=== PATIENT | female | born 1950 | race Caucasian/White ===

== ENCOUNTER 2022-11-17 13:51 | Outpatient (CLI) | payer MEDICARE, BC, SELFPAY | END 2022-11-17 13:52 | disposition home or self-care (01) | PROVIDERS: PCP Physician Assistant Medical; Visit Provider Physician Assistant Medical | DX: Z01.818 Encounter for other preprocedural examination (principal); R73.03 Prediabetes | CPT/HCPCS: 87086 ==

== ENCOUNTER 2023-04-28 12:48 | Outpatient (RCR) | payer MEDICARE, BC, SELFPAY | END 2023-10-25 23:59 | disposition home or self-care (01) | LOC: CCIC 12:48 | PROVIDERS: PCP Physician Assistant Medical; Visit Provider Physician Assistant | DX: C50.912 Malignant neoplasm of unspecified site of left female breast (principal); Z17.0 Estrogen receptor positive status [ER+]; Z79.810 Long term (current) use of selective estrogen receptor modulators (SERMs); Z90.13 Acquired absence of bilateral breasts and nipples; G62.9 Polyneuropathy, unspecified; E66.9 Obesity, unspecified; Z68.42 Body mass index [BMI] 45.0-49.9, adult | CPT/HCPCS: 99212; 99214; 99215 ==

== ENCOUNTER 2023-06-30 07:13 | Day surgery (SDC) | payer MEDICARE, BC, SELFPAY ==
[2023-06-30] VITALS (24 sets, daily range): BP systolic 101–155; BP diastolic 61–101; PULSE 56–95; RESP 14–75; TEMP 36.1–36.9; O2SAT 94–99; BMI 47.2
[2023-06-30] MEDS: LACTATED RINGERS 1000 ML 1,000 ML 100 ML IV ×2 (08:00→11:45)
[2023-06-30] MEDS: SODIUM CHLORIDE 0.9 % (FLUSH) 10 ML SYRINGE IVF (08:00)
[2023-06-30] MEDS: OXYCODONE (CR) 10 MG TAB.ER.12H PO (08:11)
[2023-06-30] MEDS: CELECOXIB 200 MG CAPSULE PO (08:11)
[2023-06-30] MEDS: ACETAMINOPHEN 500 MG TABLET 1000 MG PO ×3 (08:11→21:32)
[2023-06-30] MEDS: fentaNYL 100 MCG/2 ML inj IVP (09:30)
[2023-06-30] MEDS: MIDAZOLAM HCL 1 MG/ML inj IVP (09:30)
--- NOTE | 2023-06-30 09:36 | SUR.PREOP ---
TIME?OUT:?0930 PT/RN/MDA?VERIFICATION?OF?SURGICAL?SITE,?PROCEDURE,?AND?CONSENT OBTAINED?PRIOR?TO?INVASIVE?PROCEDURE.
--- NOTE | 2023-06-30 09:37 | P.NB_ITS ---
Nerve Block Nerve Block Time Seen by Provider: 09:35 Date Seen: 06/30/23 Type of block requested by surgeon for post-operative analgesia: adductor canal Side: left Time out performed: Yes Verification of patient name: Yes Verification of date of : Yes Site marking: site marked Name of person performing procedure: Gilberto Continuous monitoring Was continuous monitoring of O2 sat, B/P, nuclear monitoring technician, recorded every 15 minutes?: Yes Procedure Checklist: sterile prep, needles and gloves Ultrasound guided. Images saved: Yes Medications given in 5ml increments after negative aspiration: Ropivicaine %: 0.5 mL: 20 Needle gauge: 20 Decadron (mg): 10 Precedex (mcg): 25 Patient tolerated procedure well: Yes Additional comments: Needle noted adjacent to nerve Block Charges Block Charge (with Pro Fee): Femoral Nerve Use of Ultrasound Machine for Block: Yes- US Guidance/pain block
--- NOTE | 2023-06-30 09:37 | P.NB_ITS ---
Nerve Block Nerve Block Time Seen by Provider: 09:35 Date Seen: 06/30/23 Type of block requested by surgeon for post-operative analgesia: geniculars Side: left Time out performed: Yes Verification of patient name: Yes Verification of date of : Yes Site marking: site marked Name of person performing procedure: Gilberto Continuous monitoring Was continuous monitoring of O2 sat, B/P, awake overnight monitor, recorded every 15 minutes?: Yes Procedure Checklist: sterile prep, needles and gloves Medications given in 5ml increments after negative aspiration: Ropivicaine %: 0.5 mL: 9 Needle gauge: 25 Patient tolerated procedure well: Yes Block Charges Block Charge (with Pro Fee): Genicular Nerve Block Use of Ultrasound Machine for Block: No
--- NOTE | 2023-06-30 09:38 | W.ANESCHARGE ---
Anesthesia Charges Start Date/Time Anesthesia Start Date: 06/30/23 Anesthesia Start Time: 10:14 Stop Date/Time Anesthesia Stop Date: 06/30/23 Anesthesia Stop Time: 12:53 Summary Extremes of Age - Over 70 or under 1: MDA
[2023-06-30] MEDS: CEFAZOLIN 2 GM INJ IVP (10:20)
[2023-06-30] MEDS: TRANEXAMIC ACID 100 MG/ML INJ 1000 MG IV (10:25)
--- NOTE | 2023-06-30 12:13 | CRLHL7_ITS ---
For Patients: As a result of the Cures Act, medical imaging exams and procedure reports are released immediately into your electronic medical record. You may view this report before your referring provider. If you have questions, please contact your health care provider. Indication: Left total knee arthroplasty postop. Technique: Left knee two views. Comparison: 12/28/2022. Findings: Left knee arthroplasty appears appropriately positioned. Soft tissue gas consistent with recent surgery. No acute osseous abnormality or other significant interval change. Impression: Expected changes status post left knee arthroplasty. Dictated by Miguelito Miller MD @ 06/30/2023 8:30:07 PM (Electronically Signed)
--- NOTE | 2023-06-30 12:21 | PM.ORPRC ---
Procedure Note Date of procedure: 06/30/23 Procedure: PREOPERATIVE DIAGNOSIS: Left knee osteoarthritis POSTOPERATIVE DIAGNOSIS: Left knee osteoarthritis NAME OF OPERATION: Left total knee arthroplasty SURGEON: Saud Vieira MD MAGNETO ELECTRICIAN: ANGÉLICA Sue ANESTHESIA: Spinal ESTIMATED BLOOD LOSS: 0 mL COMPLICATIONS: None SPECIMENS: None DRAINS: None PREOPERATIVE ANTIBIOTICS: Ancef 2 grams IMPLANTS: 1. J&J Attune revision CRS #6 posterior stabilized femur with a 14 mm x 50 mm cemented stem 2. # 5 revision CRS fixed-bearing tibia with a 14 mm x 50 mm cemented stem 3. #6 posterior stabilized plus, 6 mm fixed-bearing polyethylene 4. 41 patella INDICATIONS: The patient is a 69 ufl-tshq-jqg with a longstanding history of severe, unrelenting left knee pain secondary to end-stage (grade IV) left knee osteoarthritis. Despite appropriate nonoperative management, including activity modification, anti-inflammatories, mogz-nbi-yqnnfow pain medication, bracing, physical therapy, and injections they continue to have pain and disability. Operative intervention was offered. The risks, benefits and expected outcomes were discussed in detail. These included but were not limited to: Infection, bleeding, injury to blood vessel or nerve, venous thromboembolism. All questions were answered to their satisfaction. Use of an assistant offset press operator was necessary throughout the case for patient positioning and safety, soft tissue retraction, and closure. A modifier 22 should be added to this case. The patient's weight of 117 kg with a BMI of 47.3 kg/meter squared made exposure difficult. Because of this, we elected to stem both components and used more constrained polyethylene. All of these factors more than doubled the time typically required to complete the case. PROCEDURE: Spinal anesthesia was administered. The patient was placed supine on the operating table. The assistant offset press operator made sure the patient was positioned appropriately. The lower extremity was prepped and draped in the usual sterile fashion. The limb was exsanguinated with the Axel bandage. The pneumatic tourniquet was inflated to 300 mmHg. A standard anterior incision was made with the knee in flexion. Subcutaneous dissection was sharply taken through fascial layer #1. Full-thickness medial and lateral flaps were elevated. The assistant offset press operator retracted the soft tissues and protected them throughout the case. A standard medial parapatellar approach was made. The patella was everted. The infrapatellar fat pad was preserved. The menisci and cruciate ligaments were sharply d?brided. Marginal osteophytes were d?brided with the rongeur. The drill was used to penetrate the femoral canal. The canal was aspirated and irrigated with pulse lavage. The intramedullary femoral guide was placed for a 5-degree valgus cut, removing 10 mm off the distal femur. The saw was used to make the cut. Whitesides line and the trans epicondylar axis were marked. The femoral sizing guide was pinned onto the distal femur. Three degrees of external rotation nicely parallels the transepicondylar axis. Pins were placed for posterior referencing. The four-in-one cutting guide was pinned onto the distal femur. The anterior, posterior, and chamfer cuts were made. The assistant offset press operator protected the collateral ligaments. The trial femoral component was placed. The drill into the canal was used x2. The box cuts were made. The stemmed, boxed trial was placed and was an excellent fit. Attention was then turned to the proximal tibia. The extramedullary tibial guide was placed for a neutral varus/valgus cut with 5 degrees of posterior slope, removing 2 mm based off the medial tibial surface. The assistant offset press operator protected the collateral ligaments and the neurovascular bundle. The saw was used to make the cut. Trial components were placed. The knee was tight in both flexion and extension. Therefore, we replaced the tibial cutting jig, advancing it 2 more mm distally. The saw was used to make the cut again. Trial components were placed and now the knee is nicely balanced in both flexion and extension. The trial components were removed. The tray was placed in appropriate rotation, parallel to our tibial cutting pins. It was pinned by the assistant offset press operator and the drill into the canal x2 was used. The stemmed, trial tibial component was placed. The punch was used. The trial tibia was removed and the punch was used again. Attention was then turned to the patella. [place] patellar thickness was 21 mm. The lobster claw resection guide was used with the 7.5 mm mckinley. The saw was used to make the cut. Drill holes were made by the assistant offset press operator. The trial was placed and was an excellent fit. Cancellous surfaces were irrigated with pulse lavage and thoroughly dried by the assistant offset press operator. We cemented the tibial component, then the femoral component. We impacted the 6 mm polyethylene onto the tibial tray. The knee was brought into full extension. We then cemented the patellar component. Excessive cement was removed. The cement was allowed to harden. The knee was taken through a range of motion and was found to be nicely balanced in both flexion and extension. The patella tracks centrally. The assistant offset press operator did a three minute dilute Betadine solution soak. The assistant offset press operator irrigated the wound with 3 liters of normal saline via pulse lavage. The assistant offset press operator reapproximated the extensor mechanism with #1 Vicryl in an interrupted yivqmc-um-ourjx fashion. The assistant offset press operator then ran the extensor mechanism with a #1 PDO Stratafix. The assistant offset press operator closed the subcutaneous tissues with a 3-0 Stratafix and the skin with a running 3-0 Stratafix in a subcuticular fashion. Glue was used to seal the skin. The assistant offset press operator placed a dry dressing, JACK stocking, and Polar Care. Sponge and needle counts were correct x2. The patient tolerated the procedure well. There were no apparent complications. They were carefully transferred to the hospital bed and taken to the postanesthesia care unit in satisfactory condition. PLAN: The patient will be mobilized with physical therapy. Aspirin will be used for DVT prophylaxis. They will be discharged to home once medically appropriate.
[2023-06-30] MEDS: OXYCODONE 5 MG TABLET PO ×4 (14:18→23:50)
[2023-06-30] MEDS: HYDROmorphone 0.5 mg/0.5 ml inj IVP ×2 (14:51→17:04)
[2023-06-30] MEDS: CEFAZOLIN 2 GM in 0.9 % SODIUM CHLORIDE Mini-bag 100 ML IVPB ×2 (17:05→23:52)
--- NOTE | 2023-06-30 20:12 | P.IMCN_ITS ---
Date of Consult Consult date: 06/30/23 Requesting Physician: Orthopedics Primary Care Provider: Tara Fagan PA-C Consult Narrative Narrative: HOSPITALIST CONSULT Procedure: Date of procedure: 06/30/23 NAME OF OPERATION: Left total knee arthroplasty SURGEON: Saud Vieira MD ANESTHESIA: Spinal ESTIMATED BLOOD LOSS: 0 mL COMPLICATIONS: None The hospital medicine team was asked by the orthopedic surgery team to manage the patient's hypertension, elevated blood sugar, morbid obesity and chronic pain. There have been no perioperative complications. Updated and reviewed the active medical problems, past medical history, past surgical history, social history, allergies and medications in our electronic EMR. PHYSICAL EXAM: CODE STATUS: FULL CODE CONSTITUTIONAL: Conversive, good historian. A/O. Knows setting and context. VITAL SIGNS: see record. HEENT: Normocephalic, atraumatic. PERRL, EOMI, conjunctivae pink, no scleral icterus. Ears and nose externally normal. Pharynx normal. NECK: No JVD. No carotid bruit, no thyromegaly, no adenopathy. CHEST: Clear to auscultation bilaterally HEART: S1 and S2 normal. ABDOMEN: Flat, soft, nontender. Normal bowel sounds. Moderately obese. EXTREMITIES: No edema. MUSCULOSKELETAL: left lower: straight leg raise +, NVI. surgical dressing intact. no hematoma. NEURO: Cranial nerves intact. Mentation normal. Normal affect. SKIN: No rashes, petechiae, concerning changes PSYCHIATRIC: Mentation normal. INVESTIGATIONS: EMR Reviewed; Pre-OP Reviewed DISPOSITION: DVT: Agree with Ortho team decision GI: PO intake PFSH [facility] Medical History (Updated 06/30/23 @ 20:46 by Lynette Martin MD) Thyroiditis ?E06.9 - Thyroiditis, unspecified (ICD-10) Tendinitis of left wrist ?M77.8 - Other enthesopathies, not elsewhere classified (ICD-10) Multiple benign nevi ?D22.9 - Melanocytic nevi, unspecified (ICD-10) Metabolic syndrome X (05/01/10) ?E88.81 - Metabolic syndrome (ICD-10) Eczematous dermatitis ?L30.9 - Dermatitis, unspecified (ICD-10) Diverticulosis of intestine (08/01/10) ?K57.90 - Diverticulosis of intestine, part unspecified, without perforation or abscess without bleeding (ICD-10) Cancer of breast, female ?C50.919 - Malignant neoplasm of unspecified site of unspecified female breast (ICD-10) Acute posthemorrhagic anemia ?D62 - Acute posthemorrhagic anemia (ICD-10) Surgical History (Updated 06/30/23 @ 20:45 by Lynette Martin MD) H/O left cataract extraction (10/11/18) ?Z98.42 - Cataract extraction status, left eye (ICD-10) H/O cystoscopy (11/29/22) ?Z98.890 - Other specified postprocedural states (ICD-10) Status post bilateral mastectomy (~2015) ?Z90.13 - Acquired absence of bilateral breasts and nipples (ICD-10) History of right cataract extraction (10/2016) ?Z98.41 - Cataract extraction status, right eye (ICD-10) History of hysterectomy (04/08/09) ?Z90.710 - Acquired absence of both cervix and uterus (ICD-10) History of carpal tunnel repair (04/08/09) ?Z98.890 - Other specified postprocedural states (ICD-10) History of breast biopsy (05/01/10) ?Z98.890 - Other specified postprocedural states (ICD-10) History of arthroscopy of left knee (04/10/14) ?Z98.890 - Other specified postprocedural states (ICD-10) Family History (Updated 06/14/23 @ 09:45 by Pretty Sifuentes RN) Mother Stroke, Onset Age: 45 Father Pancreatitis Positive serology for Erlichiosis H/O splenectomy Sister Stroke Social History (Reviewed 05/10/23 @ 13:56 by Rachael Ferraro ~ [facility], [employer]) Narrative: non-smoker What is your current living situation?: I presently have a place to live Problems where you live details: one step into house, two steps into porch. bathroom on main level with laundry. grab bars in BR. In the past 12 months, utilities in danger of being shut off: no In the past 12 mos, have been you worried that your food would run out before you had money to buy more?: never true In the past 12 mos, the food you bought just didn't last and you didn't have money to buy more?: never true Smoking Status: Never smoker Do you use any of these nicotine containing products: None Second hand tobacco smoke exposure: No How often do you have a drink containing alcohol: monthly or less Alcohol type: beer How many standard drinks containing alcohol do you have on a typical day: 1 or 2 How often do you have six or more drinks on one occasion: Never AUDIT-C Alcohol total score: 1 Non-prescribed substance use: denies use Caffeine: Yes (1c/day coffee) How often does anyone, including family, friends and others, physically hurt you : never How often does anyone, including family, friends and others, insult or talk down to you: never How often does anyone, including family, friends and others, threaten you with harm: never How often does anyone, including family, friends and others, scream or curse at you: never service: No Meds Home Medications and Allergies Home Medications Medication Instructions Recorded Confirmed Type Lactobacillus acidophilus 10 mg PO DAILY 11/17/22 06/30/23 History calcium carb-vit S4-[id number]-qiyi 1 tab PO ONCE 11/17/22 06/30/23 History 333 mg-200 unit-133 mg-5 mg tablet magnesium chloride 70 mg 70 mg PO DAILY 11/17/22 06/30/23 History (magnesium chloride) tablet,delayed release multivitamin with minerals-ferrous 1 tab PO DAILY 11/17/22 06/30/23 History sulfate 4.5 mg iron tablet (One Daily Multivitamins with Minerals) pyridoxine (vitamin B6) 50 mg 25 mg PO BID 11/17/22 06/30/23 History tablet cholecalciferol (vitamin D3) 2,000 unit PO QDAY 04/28/23 06/30/23 History collagen peptide See Rx Instructions PO .COMPLEX 06/16/23 06/30/23 History Allergies Allergy/AdvReac Type Severity Reaction Status Date / Time No Known Allergies Allergy Unknown Verified 06/30/23 07:43 Exam Const: Vital Signs, click to edit/add: Vital Signs - 24 hr 06/30/23 08:36 06/30/23 09:31 06/30/23 09:35 Temperature 98.2 F Pulse Rate 81 59 L 66 Respiratory Rate 16 16 16 Blood Pressure 134/89 141/78 H 137/78 Blood Pressure [Ri ght Arm] Pulse Oximetry 94 96 98 Oxygen Delivery Me thod Room Air Nasal Cannula Nasal Cannula Oxygen Flow Rate 2 2 06/30/23 12:48 06/30/23 12:55 06/30/23 13:00 Temperature 97.1 F L Pulse Rate 75 73 63 Respiratory Rate 75 H 16 14 Blood Pressure 116/75 120/79 129/75 Blood Pressure [Ri ght Arm] Pulse Oximetry 94 96 96 Oxygen Delivery Me thod Room Air Room Air Room Air Oxygen Flow Rate 06/30/23 13:05 06/30/23 13:10 06/30/23 13:15 Temperature 97.2 F L Pulse Rate 67 58 L 57 L Respiratory Rate 14 18 14 Blood Pressure 132/76 125/77 129/61 Blood Pressure [Ri ght Arm] Pulse Oximetry 97 97 Oxygen Delivery Me thod Room Air Room Air Room Air Oxygen Flow Rate 06/30/23 13:20 06/30/23 13:23 06/30/23 13:54 Temperature 97.0 F L Pulse Rate 56 L 56 L 64 Respiratory Rate 16 14 18 Blood Pressure 127/76 130/78 Blood Pressure [Ri ght Arm] 135/66 Pulse Oximetry 96 96 Oxygen Delivery Me thod Room Air Nasal Can nula Room Air Nasal Can nula Room Air Oxygen Flow Rate 06/30/23 19:29 06/30/23 19:33 06/30/23 20:07 Temperature 97.0 F L 97.0 F L 97.0 F L Pulse Rate Respiratory Rate 18 18 Blood Pressure Blood Pressure [Ri ght Arm] 101/77 101/77 Pulse Oximetry 94 94 Oxygen Delivery Me thod Room Air Room Air Oxygen Flow Rate 0 Assessment and Plan Assessment and plan (1) Status post left knee replacement: Problem comment: 06/30/23 - Dr. Vieira -[facility] medicine team is happy to follow this patient through to discharge. Uneventful perioperative course is expected. Status: Acute (2) Neuropathy: Problem comment: -continue gabapentin per home dosing Status: Acute (3) Degenerative disc disease, cervical: Problem comment: C3-4 Moderate bilateral C6-C7 neural foraminal stenoses Status: Chronic (4) Prehypertension: Problem comment: Monitor Status: Acute (5) Prediabetes: Problem comment: Monitor Status: Acute (6) Cancer of breast, female: Problem comment: 1 positive node; September 2021 no active disease Continue tamoxifen. Status: Acute (7) Multinodular goiter: Problem comment: 11/2018; thyroid ultrasound; repeat in one year time Status: Acute (8) Obesity: Problem comment: BMI 47.3 (previous BMI 47.7) Status: Acute
--- NOTE | 2023-06-30 20:33 | PC.NURSE ---
Nursing Care Hours: [id number] Pt this shift alert and oriented and talkative from PACU. Bandage remained CDI. Pedal pulses present bilat feet. CMS intact. Per pt, chronic neuropathy keeps feet feeling like pins and needles. Nauseated x1 when walking back from bathroom. No interventions needed, resolved on its own. Eating and drinking. Voided. IV patent. VSS. Up in chair x2.
[2023-06-30] MEDS: GABAPENTIN 600 MG TABLET PO (21:31)
[2023-06-30] MEDS: ASPIRIN 81 MG TABLET EC PO (21:31)
[2023-06-30] MEDS: SENNOSIDES 1 TAB TABLET 2 TAB PO (21:32)
[2023-07-01] MEDS: HYDROmorphone 0.5 mg/0.5 ml inj IVP (01:11)
[2023-07-01] MEDS: ACETAMINOPHEN 500 MG TABLET 1000 MG PO ×2 (04:20→09:37)
[2023-07-01] MEDS: OXYCODONE 5 MG TABLET PO (04:32)
[2023-07-01 05:00] VITALS: BP 148/89; PULSE 91; RESP 18; TEMP 36.8; O2SAT 95
[2023-07-01 07:00] VITALS: BP 151/92; PULSE 115; RESP 18; TEMP 36.7; O2SAT 95
[2023-07-01 07:02] LABS: Basophils Percent Auto 0.1 % (0.0-3.0); Hematocrit 51.8 % (33.0-51.0); Hemoglobin* 12.6 gm/dL (12.0-16.0); Immature Granulocytes Pct Auto 0.3 %; Lymphocytes Percent Auto 10.2 % (20-44); Mean Corpuscular HGB Conc 24 gm/dL (32-36); Mean Corpuscular Hemoglobin 28 pg (26-34); Mean Corpuscular Volume 115 fL (80-100); Monocytes Percent Auto 9.5 % (0.0-11.0); Neutrophils Percent Auto 79.9 % (42.0-72.0); Platelet Count* 195 K/uL (140-440); RDW Coefficient of Variation % 16.2 % (11.5-15.5); Red Blood Count 4.49 m/uL (4.00-5.20); White Blood Count* 13.99 K/uL (4.50-11.00)
[2023-07-01 07:13] LABS: Potassium* 4.2 mmol/L (3.6-5.1); Sodium* 137 mmol/L (135-149)
[2023-07-01 07:16] LABS: Blood Urea Nitrogen* 17 mg/dL (7-30); Creatinine* 0.7 mg/dL (0.5-1.5); Est. Creatinine Clearance* 39.04; Estimated Glomerular Filt Rate 91 ml/min
[2023-07-01 07:17] LABS: INR 1.15 (0.91-1.10); Prothrombin Time 15.4 Seconds
--- NOTE | 2023-07-01 07:32 | PC.NURSE ---
Pt is alert and oriented x3. Afebrile. Pt reports 6/10 pain in left knee, pain managed with cryo cuff, and scheduled and PRN medications.?Pt?s left knee?dressing was CDI. Pt denies chest pain, SOB, and N/V. Pt is tolerating a reg diet. Pt is up SBA with walker and gait belt. Pt slept intermittently throughout night. ?
[2023-07-01 07:51] LABS: Slide Review Reflex Yes
[2023-07-01 07:54] LABS: Slide Review Acceptable Review (Acceptable)
[2023-07-01] MEDS: ASPIRIN 81 MG TABLET EC PO (09:35)
[2023-07-01] MEDS: GABAPENTIN 300 MG CAPSULE PO (09:36)
[2023-07-01] MEDS: MAGNESIUM OXIDE 400 MG TABLET PO (09:36)
[2023-07-01] MEDS: SENNOSIDES 1 TAB TABLET 2 TAB PO (09:37)
--- NOTE | 2023-07-01 09:40 | P.ORPN_ITS ---
Subjective Subjective Time Seen by Provider: 07:30 Date Seen: 07/01/23 Principal diagnosis: Status post left knee replacement Interval history: Mireya is comfortable in a recliner this morning. She will be discharging to home today. Ortho Exam Narrative Exam Narrative: Alert and oriented x3. Patient is in no acute distress. Converses without labored breathing. Hearing is grossly intact. Ambulates with a walker. Examination of the left knee shows the dressing is intact. Mild soft tissue edema. Mild effusion. Bilateral calves are soft and nontender. Good quad strength. CMS is intact left lower extremity. Const Vital Signs, click to edit/add: Vital Signs - 24 hr 06/30/23 12:48 06/30/23 12:55 06/30/23 13:00 Temperature 97.1 F L Pulse Rate 75 73 63 Pulse Rate [Pulse Oximeter] Respiratory Rate 75 H 16 14 Blood Pressure 116/75 120/79 129/75 Blood Pressure [Right Arm] Pulse Oximetry 94 96 96 Oxygen Delivery Method Room Air Room Air Room Air Oxygen Flow Rate 06/30/23 13:05 06/30/23 13:10 06/30/23 13:15 Temperature 97.2 F L Pulse Rate 67 58 L 57 L Pulse Rate [Pulse Oximeter] Respiratory Rate 14 18 14 Blood Pressure 132/76 125/77 129/61 Blood Pressure [Right Arm] Pulse Oximetry 97 97 Oxygen Delivery Method Room Air Room Air Room Air Oxygen Flow Rate 06/30/23 13:20 06/30/23 13:23 06/30/23 13:45 Temperature 97.0 F L Pulse Rate 56 L 56 L Pulse Rate [Pulse Oximeter] 66 Respiratory Rate 16 14 18 Blood Pressure 127/76 130/78 Blood Pressure [Right Arm] 127/77 Pulse Oximetry 96 96 95 Oxygen Delivery Method Room Air Nasal Cannula Room Air Nasal Cannula Room Air Oxygen Flow Rate 06/30/23 13:54 06/30/23 14:00 06/30/23 14:15 Temperature Pulse Rate 64 Pulse Rate [Pulse Oximeter] 66 65 Respiratory Rate 18 18 16 Blood Pressure Blood Pressure [Right Arm] 135/66 141/73 H 146/75 H Pulse Oximetry 95 98 Oxygen Delivery Method Room Air Room Air Room Air Oxygen Flow Rate 06/30/23 14:30 06/30/23 15:00 06/30/23 15:00 Temperature Pulse Rate Pulse Rate [Pulse Oximeter] 69 66 Respiratory Rate 16 16 Blood Pressure Blood Pressure [Right Arm] 155/86 H 143/81 H Pulse Oximetry 99 99 98 Oxygen Delivery Method Room Air Room Air Oxygen Flow Rate 06/30/23 17:00 06/30/23 18:00 06/30/23 19:29 Temperature 97.0 F L Pulse Rate Pulse Rate [Pulse Oximeter] 95 95 Respiratory Rate 18 18 18 Blood Pressure Blood Pressure [Right Arm] 154/101 H 147/88 H 101/77 Pulse Oximetry 98 98 94 Oxygen Delivery Method Room Air Room Air Room Air Oxygen Flow Rate 06/30/23 19:33 06/30/23 20:07 06/30/23 23:30 Temperature 97.0 F L 97.0 F L 98.5 F Pulse Rate Pulse Rate [Pulse Oximeter] 94 Respiratory Rate 18 16 Blood Pressure Blood Pressure [Right Arm] 101/77 129/75 Pulse Oximetry 94 96 Oxygen Delivery Method Room Air Room Air Oxygen Flow Rate 0 06/30/23 23:40 06/30/23 23:40 07/01/23 05:00 Temperature 98.3 F Pulse Rate Pulse Rate [Pulse Oximeter] 94 91 Respiratory Rate 18 18 Blood Pressure Blood Pressure [Right Arm] 148/89 H Pulse Oximetry 96 95 Oxygen Delivery Method Room Air Oxygen Flow Rate Assessment and Plan Assessment and plan (1) Status post left knee replacement: Problem details: 06/30/23 - Dr. Vieira -[facility] [place] medicine team is happy to follow this patient through to discharge. Uneventful perioperative course is expected. Status: Acute Assessment and Plan: Plan for discharge is today to home if they meet discharge criteria. DVT prophylaxis includes aspirin 81 mg twice daily x1 month, Yasmany stockings x1 month may remove for 1 hr per day, frequent ambulation Remove dressing in 1 week. Observe wound and phone Orthopedics with any questions or concerns Return to clinic in 1 week for a wound check Return to clinic in 6 weeks with surgeon Minimize narcotic use. Wean off and discontinue soon as possible. Activities as tolerated. No strenuous activity. Outpatient physical therapy as scheduled. Ice and elevate the operative extremity. No restriction on ice. (2) Neuropathy: Problem details: -continue gabapentin per home dosing Status: Acute (3) Degenerative disc disease, cervical: Problem details: C3-4 Moderate bilateral C6-C7 neural foraminal stenoses Status: Chronic (4) Prehypertension: Problem details: Monitor Status: Acute (5) Prediabetes: Problem details: Monitor Status: Acute (6) Cancer of breast, female: Problem details: 1 positive node; September 2021 no active disease Continue tamoxifen. Status: Acute (7) Multinodular goiter: Problem details: 11/2018; thyroid ultrasound; repeat in one year time Status: Acute (8) Obesity: Problem details: BMI 47.3 (previous BMI 47.7) Status: Acute
[2023-07-01 11:00] VITALS: BP 132/83; PULSE 105; RESP 18; O2SAT 92
--- NOTE | 2023-07-01 11:46 | PC.NURSE ---
Nursing Care Hours: [id number] Pt this shift calm and cooperative, alert and oriented. No c/o SOB or chest pain. CMS intact. Bandage CDI. SB assist with walker and gait belt. Pt needs reminders to breathe during ambulation. Pt had a bout of lightheadedness and diaphoresis per PT during ambulation. BP WNL. Discussed with pt taking breaths before standing up, once standing, and then walking with the breaths instead of breathing with steps. IV removed for discharge. Instructions discussed with pt and adult son. All questions and concerns addressed. Wheeled out to vehicle in stable condition.
--- NOTE | 2023-07-06 17:52 | W.ANESCHARGE ---
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
== END 2023-07-01 10:50 | disposition home or self-care (01) ==
LOC: OR 07:14 → MEDSURG 07:17
PROVIDERS: PCP Physician Assistant Medical; Visit Provider Orthopaedic Surgery
PROC: (CPT 27447; principal; 2023-06-30 10:00)
DX: M17.12 Unilateral primary osteoarthritis, left knee (principal); G89.18 Other acute postprocedural pain; E66.01 Morbid (severe) obesity due to excess calories; G62.9 Polyneuropathy, unspecified; M50.31 Other cervical disc degeneration, high cervical region; M48.02 Spinal stenosis, cervical region; Z68.42 Body mass index [BMI] 45.0-49.9, adult; E04.2 Nontoxic multinodular goiter; R73.03 Prediabetes; R03.0 Elevated blood-pressure reading, without diagnosis of hypertension; Z85.3 Personal history of malignant neoplasm of breast
CPT/HCPCS: 27447; 1402; 36415; 64447; 64454; 73560; 76942; 82565; 84132; 84295; 84520; 85025; 85610; 97110; 97116; 97161; 97165; 97530; 97535; 99100; A9270; C1776; J0690; J1170; J2250; J2371; J2405; J2704; J3010; J7120

== ENCOUNTER 2023-10-11 10:00 | Outpatient (RCR) | payer MEDICARE, BC, SELFPAY ==
--- NOTE | 2023-06-21 15:00 | PT.OPE ---
PT [place] [facility] Eval PT [facility] Outpatient Eval Start: 06/20/23 09:14 Freq: Status: Active Protocol: Document 06/21/23 14:57 CJT (Rec: 06/21/23 14:59 CJT [id number]) E-signed By Wagner Bobby PT Physical Therapy Outpatient Evaluation Insurance Information Recert Due Date 09/19/23 Insurance Name Medicare B Medical Diagnosis Z96.652 - presence of L artificial knee joint M17.12 - unilateral primary osteoarthritis, L knee Treating Diagnosis Z96.652 - presence of L artificial knee joint Referring Jay Vaughn MD Subjective Subjective Pt presents for pre-op L TKA ( DOS: 06/30/23). Pt is very motivated to have good outcomes following her procedure and reports helping her late through both of his total knees in early . She tells me that she feels she knows what she is getting herself into in regard pain and general work on her part to rehab her L knee. Pt lives alone in a rambler home. All living on the main floor. Attached garage with one step up. Has a porch with one step down (handrails on both sides ). Small bathroom with handrails in tub shower, handheld shower head. Has a vanity next to toilet (raised seat). Pt has shower seat. Pts son will be picking her up from the hospital. Daughter will be taking care of her over the weekend. Her friend Azeb will be staying with her until after surgery. Is able to stay longer if required. Pt does have 3 little dogs. Well behaved and not too wild in the house. 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 Pre- surgical consultation was completed including education on expected post-surgical swelling/bruising/pain, appropriate use of pain medication, icing to reduce pain/swelling, exercises following surgery, therapy outcomes and safety in and outside his home. Pt completed several reps of each of the exercises issued in his post- TKA folder and shows good understanding of these. I did encourage the patient to practice all of these exercises at least two more times prior to surgery as well as read each of the pages on post-surgical expectations and safety and ambulation expectations following their surgery. All questions were answered to the patient's satisfaction. Skilled PT services are medically necessary to address deficits and return patient to highest level of function. Recommend physical therapy sessions 2 reducing to 1/week for 12 weeks, beginning 07/04/2023. Pt agrees with this plan. Printout of HEP was given for I completion and pt gives verbal understanding of each exercise. Primary Functional Limitations Walking, stairs Plan of Care Rehabilitation Potential Excellent Physical Therapy Goals Goals: stairs, bus steps; wants to be able to travel. STG - To be completed in 2-3 weeks: 1. Pt will report consistent use of ice as well as elevation of surgical limb while resting to reduce inflammation and swelling. 2. Pt will demonstrate 90 degrees of knee flexion on surgical limb to reduce risk of contracture development and progress through rehabilitation as expected. 3. Pt to show appropriate use of all AD's with minimal gait deviations and no LOB with all ambulation to reduce risk of falls and restore normal gait mechanics. LTG - To be completed in 8-12 weeks: 1. Pt to be I with HEP so that they may I manage progression of symptoms. 2. Pt will demonstrate 120 degrees knee flexion on surgical limb so that they may descend steps without restrictions in ROM. 3. Pt will perform 10+ squats with good control over medial/ lateral deviation of knees to show improved functional strength to assist with transfers. 4. Pt will demonstrate 5/5 MMT knee flexion/extension of surgical limb to provide greater support to knee joint and allow for ease of ambulation. Treatment Plan/Direct Interventions Electrical Stimulation,Gait Training,Ice/Cold/ Vasopneumatic,Joint Mobilization,Manual Therapy, Neuromuscular Re-ed,Self-Care/ Home Management,Therapeutic Activities,Therapeutic Exercises Frequency/Duration 2 reducing to 1/week for 8-12 weeks Patient Will Be Discharged From Therapy Completion of LTG(s),Skills Plateau,Independent w/HEP, Independently Progressing Evaluation Billing Untimed Code Treatment Minutes 50 PT Eval No Charge No Complexity Low Certification Information Initial Certification Date 06/21/23 Ending Certification Date 09/19/23 Provider Signature Shows Agreement With POC & Medical Necessity Physician Signature & Date Requested Please Sign/Date Here Physician Comment/Change : Physician NPI Number #
--- NOTE | 2023-08-01 12:06 | PT.OPDN ---
PT [facility] Out[facility] Daily Note [facility] Outpatient Daily Note Start: 06/20/23 09:14 Freq: Status: Active Protocol: Document 08/01/23 10:57 CJT (Rec: 08/01/23 12:06 CJT [email or web address]) E-signed By Wagner Bobby, PT PT [facility] Daily Progress Note Visit Information Note Type Recert/Progress Note Visit Number 10 Insurance Authorized Visits 99 Physician Authorized Visits eval and treat Insurance Information Recert Due Date 09/19/23 Insurance Name Medicare B Medical Diagnosis Z96.652 - presence of L artificial knee joint M17.12 - unilateral primary osteoarthritis, L knee Treating Diagnosis Z96.652 - presence of L artificial knee joint Referring Jay Vaughn MD Subjective Subjective Pt doing well. Has been able to sleep with much less pain lately and has been walking a bit further each day. Pain Comments 04/23 Preferred Name Mireya Home Exercise Home Exercise Comments [facility]: [id number] Objective Other/Pertinent Objective L knee AROM: 2-115 degrees Patient Instructed in Risks/Benefits Yes Therapeutic Exercise Therapeutic Exercise Minutes (minutes) 44 Therapeutic Exercise: To Restore Bike S9 ? 10 minutes Functional Status Leg Press 3 x 10, 50# Gastroc stretch on slant board 2 x 60 Knee flexion stretch 2 x 90 Knee extension stretch 2 x 60 , 90 Supine HS stretch x 60 S/L hip flexor/quad stretch x 60 Squats with hands at rail 2 x 10 Heel raises x 10 3-way hip in standing x 10 ea Manual Therapy Techniques Manual Therapy Minutes (minutes) 15 Manual Therapy Techniques STM to L quad, ITB, VMO, gastroc, soleus to reduce tissue tension and improve extensibility CFM to incision to diminish adhesions Treatment Minutes Timed Code Treatment Minutes 59 Total Treatment Time 59 Billing Units Manual Therapy Units 1 Therapeutic Exercise Units 3 Assessment/Impression Assessment/Impression Mireya has progressed very well during her time in therapy thus far. She is on track to meet her AROM and strength goals for her L knee and I anticipate that she will be prepared physically and mentally for her R TKA in October 2023. Mireya's AROM is nearly full at this time and her functional strength continues to show improvements weekly. Currently her CC is pain in the anteromedial portion of her L knee which is very common at this time during recovery. Today we discussed the importance of continued stertching to help reduce this pain. Pts HEP was updated today wo include squats, heel raises, 3-way hip in standing as well as continued knee flexion and extension stretches. Printout issued for I completion. Recommend continued PT services to address deficits and return pt to highest level of function. Plan of Care Physical Therapy Goals Goals: stairs, bus steps; wants to be able to travel. STG - To be completed in 2-3 weeks: 1. Pt will report consistent use of ice as well as elevation of surgical limb while resting to reduce inflammation and swelling. MET 2. Pt will demonstrate 90 degrees of knee flexion on surgical limb to reduce risk of contracture development and progress through rehabilitation as expected. MET 3. Pt to show appropriate use of all AD's with minimal gait deviations and no LOB with all ambulation to reduce risk of falls and restore normal gait mechanics. MET LTG - To be completed in 8-12 weeks: 1. Pt to be I with HEP so that they may I manage progression of symptoms. 2. Pt will demonstrate 120 degrees knee flexion on surgical limb so that they may descend steps without restrictions in ROM. 3. Pt will perform 10+ squats with good control over medial/ lateral deviation of knees to show improved functional strength to assist with transfers. 4. Pt will demonstrate 5/5 MMT knee flexion/extension of surgical limb to provide greater support to knee joint and allow for ease of ambulation. Daily Plan of Care Continue per POC
== END 2023-10-25 10:32 | disposition home or self-care (01) ==
PROVIDERS: PCP Physician Assistant Medical; Visit Provider Orthopaedic Surgery Sports Medicine
DX: M17.0 Bilateral primary osteoarthritis of knee (principal); Z96.653 Presence of artificial knee joint, bilateral; Z51.89 Encounter for other specified aftercare
CPT/HCPCS: 97016; 97032; 97110; 97116; 97140; 97161; 97164

== ENCOUNTER 2023-10-13 07:22 | Day surgery (SDC) | payer MEDICARE, BC, SELFPAY ==
[2023-10-13] VITALS (19 sets, daily range): BP systolic 102–145; BP diastolic 65–112; PULSE 62–93; RESP 16–20; TEMP 36–37.1; O2SAT 93–97; BMI 47.5
[2023-10-13] MEDS: CELECOXIB 200 MG CAPSULE PO (08:17)
[2023-10-13] MEDS: OXYCODONE (CR) 10 MG TAB.ER.12H PO (08:17)
[2023-10-13] MEDS: ACETAMINOPHEN 500 MG TABLET 1000 MG PO ×3 (08:17→19:45)
[2023-10-13] MEDS: LACTATED RINGERS 1000 ML 1,000 ML 100 ML IV ×2 (08:30→11:01)
[2023-10-13] MEDS: SODIUM CHLORIDE 0.9 % (FLUSH) 10 ML SYRINGE IVF (08:30)
[2023-10-13] MEDS: MIDAZOLAM HCL 1 MG/ML inj IVP (08:48)
[2023-10-13] MEDS: fentaNYL 100 MCG/2 ML inj IVP (08:48)
--- NOTE | 2023-10-13 08:48 | SUR.PREOP ---
TIME?OUT:?0847 PT/RN/MDA?VERIFICATION?OF?SURGICAL?SITE,?PROCEDURE,?AND?CONSENT OBTAINED?PRIOR?TO?INVASIVE?PROCEDURE.
[2023-10-13] MEDS: CEFAZOLIN 2 GM INJ IVP (08:59)
[2023-10-13] MEDS: TRANEXAMIC ACID 100 MG/ML INJ 1000 MG IV (09:13)
--- NOTE | 2023-10-13 10:06 | W.PM.NB ---
Nerve Block Nerve Block Time Seen by Provider: 08:50 Date Seen: 10/13/23 Type of block requested by surgeon for post-operative analgesia: adductor canal Side: right Time out performed: Yes Verification of patient name: Yes Verification of date of : Yes Site marking: site marked Name of person performing procedure: Gilberto Continuous monitoring Was continuous monitoring of O2 sat, B/P, quality assurance monitor chassis, recorded every 15 minutes?: Yes Procedure Checklist: sterile prep, needles and gloves Ultrasound guided. Images saved: Yes Medications given in 5ml increments after negative aspiration: Ropivicaine %: 0.5 mL: 20 Needle gauge: 20 Decadron (mg): 10 Precedex (mcg): 25 Patient tolerated procedure well: Yes Additional comments: Needle noted adjacent to nerve Block Charges Block Charge (with Pro Fee): Femoral Nerve Use of Ultrasound Machine for Block: Yes- US Guidance/pain block
--- NOTE | 2023-10-13 10:07 | P.NB_ITS ---
Nerve Block Nerve Block Time Seen by Provider: 08:50 Date Seen: 10/13/23 Type of block requested by surgeon for post-operative analgesia: geniculars Side: right Time out performed: Yes Verification of patient name: Yes Verification of date of : Yes Site marking: site marked Name of person performing procedure: Gilberto Continuous monitoring Was continuous monitoring of O2 sat, B/P, potline monitor, recorded every 15 minutes?: Yes Procedure Checklist: sterile prep, needles and gloves Medications given in 5ml increments after negative aspiration: Ropivicaine %: 0.5 mL: 9 Needle gauge: 25 Patient tolerated procedure well: Yes Block Charges Block Charge (with Pro Fee): Genicular Nerve Block Use of Ultrasound Machine for Block: No
--- NOTE | 2023-10-13 10:08 | W.ANESCHARGE ---
Anesthesia Charges Start Date/Time Anesthesia Start Date: 10/13/23 Anesthesia Start Time: 08:59 Stop Date/Time Anesthesia Stop Date: 10/13/23 Anesthesia Stop Time: 11:46 Summary Extremes of Age - Over 70 or under 1: MDA
--- NOTE | 2023-10-13 10:53 | CRLHL7_ITS ---
For Patients: As a result of the Cures Act, medical imaging exams and procedure reports are released immediately into your electronic medical record. You may view this report before your referring provider. If you have questions, please contact your health care provider. Indication: Right knee arthroplasty Technique: Right knee 2 view Findings: Hardware from a right knee arthroplasty is in satisfactory position. Bone alignment is normal. No sign of acute fracture. There are postoperative changes in the soft tissues. Dictated by Eliel Valdez MD @ 10/14/2023 11:17:08 AM (Electronically Signed)
--- NOTE | 2023-10-13 10:59 | PM.ORPRC ---
Procedure Note Date of procedure: 10/13/23 Procedure: PREOPERATIVE DIAGNOSIS: Right knee osteoarthritis POSTOPERATIVE DIAGNOSIS: Right knee osteoarthritis NAME OF OPERATION: Right total knee arthroplasty SURGEON: Saud Vieira MD COMPUTER AIDED DESIGN TECHNICIAN: ANGÉLICA Sue ANESTHESIA: Spinal ESTIMATED BLOOD LOSS: 0 mL COMPLICATIONS: None SPECIMENS: None DRAINS: None PREOPERATIVE ANTIBIOTICS: Ancef 2 grams, antibiotic impregnated cement IMPLANTS: 1. J[employer]J Attune revision CRS #6 posterior stabilized femur, with a 14 mm x 50 mm cemented stem 2. # 5 revision CRS fixed-bearing tibia, with a 14 mm x 50 mm cemented stem 3. #6 posterior stabilized, 6 mm fixed-bearing polyethylene 4. 41 patella INDICATIONS: The patient is a 73-year-old with a longstanding history of severe, unrelenting right knee pain secondary to end-stage (grade IV) right knee osteoarthritis. Despite appropriate nonoperative management, including activity modification, anti-inflammatories, [id number] pain medication, bracing, physical therapy, and injections they continue to have pain and disability. Operative intervention was offered. The risks, benefits and expected outcomes were discussed in detail. These included but were not limited to: Infection, bleeding, injury to blood vessel or nerve, venous thromboembolism. All questions were answered to their satisfaction. Use of an agency sales management assistant was necessary throughout the case for patient positioning and safety, soft tissue retraction, and closure. A modifier 22 should be added to this case. The patient's weight of 118 kg with a BMI of 48 kg/meter squared and a 50 mm layer of adipose over the extensor mechanism made exposure difficult. For these reasons we used stemmed components on both sides to reduce the risk of aseptic loosening. This more than doubled the time typically required to complete the case. PROCEDURE: Spinal anesthesia was administered. The patient was placed supine on the operating table. The agency sales management assistant made sure the patient was positioned appropriately. The lower extremity was prepped and draped in the usual sterile fashion. The limb was exsanguinated with the Axel bandage. The pneumatic tourniquet was inflated to 300 mmHg. A standard anterior incision was made with the knee in flexion. Subcutaneous dissection was sharply taken through fascial layer #1. Full-thickness medial and lateral flaps were elevated. The agency sales management assistant retracted the soft tissues and protected them throughout the case. A standard medial parapatellar approach was made. The patella was everted. The infrapatellar fat pad was preserved. The menisci and cruciate ligaments were sharply d?brided. Marginal osteophytes were d?brided with the rongeur. The drill was used to penetrate the femoral canal. The canal was aspirated and irrigated with pulse lavage. The intramedullary femoral guide was placed for a 5-degree valgus cut, removing 10 mm off the distal femur. The saw was used to make the cut. Whitesides line and the trans epicondylar axis were marked. The femoral sizing guide was pinned onto the distal femur. Three degrees of external rotation nicely parallels the transepicondylar axis. Pins were placed for posterior referencing. The four-in-one cutting guide was pinned onto the distal femur. The anterior, posterior, and chamfer cuts were made. The agency sales management assistant protected the collateral ligaments. The revision trial was placed. The box cuts were made. The drill was used x2. The stemmed, boxed trial was placed and was an excellent fit. Attention was then turned to the proximal tibia. The extramedullary tibial guide was placed for a neutral varus/valgus cut with 5 degrees of posterior slope, removing 2 mm based off the medial tibial surface. The agency sales management assistant protected the collateral ligaments and the neurovascular bundle. The saw was used to make the cut. Trial components were placed. The knee was nicely balanced in both flexion and extension. The trial components were removed. The tray was placed in appropriate rotation, parallel to our tibial cutting pins. It was pinned by the agency sales management assistant and the drill x2 was used. The stemmed tibial trial was placed. The punch was used. The tray was removed. The punch was used again. Attention was then turned to the patella. [place] patellar thickness was 20 mm. The lobster claw resection guide was used with the 7.5 mm mckinley and a saw blade used as an extra mckinley. The saw was used to make the cut. Drill holes were made by the agency sales management assistant. The trial was placed and was an excellent fit. Cancellous surfaces were irrigated with pulse lavage and thoroughly dried by the agency sales management assistant. We cemented the tibial component, then the femoral component. We impacted the 6 mm polyethylene onto the tibial tray. The knee was brought into full extension. We then cemented the patellar component. Excessive cement was removed. The cement was allowed to harden. The knee was taken through a range of motion and was found to be nicely balanced in both flexion and extension. The patella tracks centrally. The agency sales management assistant did a three minute dilute Betadine solution soak. The agency sales management assistant irrigated the wound with 3 liters of normal saline via pulse lavage. The agency sales management assistant reapproximated the extensor mechanism with #1 Vicryl in an interrupted [id number]-ha-rddfb fashion. The agency sales management assistant then ran the extensor mechanism with a #1 PDO Stratafix. The agency sales management assistant closed the subcutaneous tissues with a 3-0 Stratafix and the skin with a running 3-0 Stratafix in a subcuticular fashion. Glue was used to seal the skin. The agency sales management assistant placed a dry dressing, JACK stocking, and Polar Care. Sponge and needle counts were correct x2. The patient tolerated the procedure well. There were no apparent complications. They were carefully transferred to the hospital bed and taken to the postanesthesia care unit in satisfactory condition. PLAN: The patient will be mobilized with physical therapy. Aspirin will be used for DVT prophylaxis. They will be discharged to home once medically appropriate.
--- NOTE | 2023-10-13 11:49 | P.ANES_ITS ---
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
[2023-10-13] MEDS: HYDROmorphone 0.5 mg/0.5 ml inj IVP ×2 (12:55→22:53)
[2023-10-13] MEDS: OXYCODONE 5 MG TABLET PO ×4 (13:43→22:54)
--- NOTE | 2023-10-13 13:53 | P.IMCN_ITS ---
Date of Consult Patient: [facility] Patient Consult date: 10/13/23 Requesting Physician: Orthopedics Primary Care Provider: Tara Fagan PA-C Consult Narrative Narrative: Mireya Chadwick is a 73 year old female admitted for right total knee arthroplasty. Procedures performed by Dr. Vieira without complications. He has requested consultation for management of medical problems following surgery. Patient reports having moderate knee pain which is adequately controlled. She reports no other concerns. No dyspnea, fever, shortness of breath, nausea. Preoperatively she was doing well and had no preoperative health concerns. June of 2023 she had left knee arthroplasty. She did well following that surgery and has not had any postoperative complications. She reports good progress with recovery from that surgery. She takes gabapentin and tamoxifen and a number of supplements. She does not feel a need to take her medications today and can resume her home medicines tomorrow when she goes home. Will restart the gabapentin today but otherwise she can restart her other home medicines at discharge. She tells me she also has enough medications from her last knee surgery except she will need a refill of her oxycodone. Review of Systems Narrative: No recent illness or injury. [facility] Medical History (Updated 10/13/23 @ 14:00 by Richy Longoria MD) History of breast cancer ?Z85.3 - Personal history of malignant neoplasm of breast (ICD-10) Multinodular goiter ?E04.2 - Nontoxic multinodular goiter (ICD-10) Cancer of breast, female ?C50.919 - Malignant neoplasm of unspecified site of unspecified female breast (ICD-10) Thyroiditis ?E06.9 - Thyroiditis, unspecified (ICD-10) Tendinitis of left wrist ?M77.8 - Other enthesopathies, not elsewhere classified (ICD-10) Multiple benign nevi ?D22.9 - Melanocytic nevi, unspecified (ICD-10) Metabolic syndrome X (05/01/10) ?E88.81 - Metabolic syndrome (ICD-10) Eczematous dermatitis ?L30.9 - Dermatitis, unspecified (ICD-10) Diverticulosis of intestine (08/01/10) ?K57.90 - Diverticulosis of intestine, part unspecified, without perforation or abscess without bleeding (ICD-10) Acute posthemorrhagic anemia ?D62 - Acute posthemorrhagic anemia (ICD-10) Surgical History (Updated 10/13/23 @ 14:00 by Richy Longoria MD) Status post left knee replacement (06/30/23) ?Z96.652 - Presence of left artificial knee joint (ICD-10) H/O left cataract extraction (10/11/18) ?Z98.42 - Cataract extraction status, left eye (ICD-10) H/O cystoscopy (11/29/22) ?Z98.890 - Other specified postprocedural states (ICD-10) Status post bilateral mastectomy (~2015) ?Z90.13 - Acquired absence of bilateral breasts and nipples (ICD-10) History of right cataract extraction (10/2016) ?Z98.41 - Cataract extraction status, right eye (ICD-10) History of hysterectomy (04/08/09) ?Z90.710 - Acquired absence of both cervix and uterus (ICD-10) History of carpal tunnel repair (04/08/09) ?Z98.890 - Other specified postprocedural states (ICD-10) History of breast biopsy (05/01/10) ?Z98.890 - Other specified postprocedural states (ICD-10) History of arthroscopy of left knee (04/10/14) ?Z98.890 - Other specified postprocedural states (ICD-10) Family History Mother Stroke, Onset Age: 45 Father Pancreatitis Positive serology for Erlichiosis H/O splenectomy Sister Stroke Social History (Updated 10/13/23 @ 13:56 by Richy Longoria MD) Narrative: She lives alone in her own home in [facility]. She lives on 1 level with just a couple steps to go to her porch. After last surgery this went very well for her and she had no problems with mobility. She has a known niece will be with her for a while after surgery and also a girlfriend who will help her after surgery. 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 non-smoker What is your current living situation?: I presently have a place to live Problems where you live details: one step into house, two steps into porch. bathroom on main level with laundry. grab bars in BR. In the past 12 months, utilities in danger of being shut off: no In past 12 months, lack of transportation kept you from medical appts, meetings, work, or getting things needed for daily living: no In the past 12 mos, have been you worried that your food would run out before you had money to buy more?: never true In the past 12 mos, the food you bought just didn't last and you didn't have money to buy more?: never true Smoking Status: Former smoker What tobacco products do you use: cigarettes Years smoked: 3 Smoking quit date/years: >15 years ago Do you use any of these nicotine containing products: None Second hand tobacco smoke exposure: No How often do you have a drink containing alcohol: 2-4 times a month Alcohol type: beer How many standard drinks containing alcohol do you have on a typical day: 1 or 2 How often do you have six or more drinks on one occasion: Never AUDIT-C Alcohol total score: 2 Non-prescribed substance use: denies use Caffeine: Yes How often does anyone, including family, friends and others, physically hurt you : never How often does anyone, including family, friends and others, insult or talk down to you: never How often does anyone, including family, friends and others, threaten you with harm: never How often does anyone, including family, friends and others, scream or curse at you: never Little interest or pleasure in doing things: not at all Feeling down, depressed, or hopeless: not at all service: No Meds Home Medications and Allergies Home Medications Medication Instructions Recorded Confirmed Type Lactobacillus acidophilus 10 mg PO DAILY 11/17/22 10/13/23 History magnesium chloride 70 mg 70 mg PO DAILY 11/17/22 10/13/23 History (magnesium chloride) tablet,delayed release multivitamin with minerals-ferrous 1 tab PO DAILY 11/17/22 10/13/23 History sulfate 4.5 mg iron tablet (One Daily Multivitamins with Minerals) pyridoxine (vitamin B6) 50 mg 25 mg PO BID 11/17/22 10/13/23 History tablet cholecalciferol (vitamin D3) 2,000 unit PO QDAY 04/28/23 10/13/23 History collagen peptide See Rx Instructions PO .COMPLEX 06/16/23 10/13/23 History gabapentin 300 mg capsule 300 mg PO Q12H 10/13/23 10/13/23 History Allergies Allergy/AdvReac Type Severity Reaction Status Date / Time No Known Allergies Allergy Unknown Verified 09/20/23 11:05 Exam Narrative: Exam Narrative: She is alert and appears in no distress. Oropharynx with small airway. Neck is supple without mass or adenopathy. Respirations are clear to auscultation. Cardiovascular: S1, S2, regular rate and rhythm. No murmur gallop rub. Abdomen: Bowel sounds active. Abdomen is soft without tenderness or mass. Extremities without edema. She has intact pedal pulses and intact sensation and motion in her feet. Const: Vital Signs, click to edit/add: Vital Signs - 24 hr 10/13/23 08:38 10/13/23 11:41 10/13/23 11:46 Temperature 97.8 F 97.2 F L Pulse Rate 93 80 84 Respiratory Rate 16 20 20 Blood Pressure 136/78 103/65 104/69 Pulse Oximetry 95 96 94 Oxygen Delivery Me thod Room Air Room Air Room Air 10/13/23 11:51 10/13/23 11:55 10/13/23 12:00 Temperature Pulse Rate 80 76 75 Respiratory Rate 20 20 20 Blood Pressure 103/70 102/71 110/72 Pulse Oximetry 96 96 96 Oxygen Delivery Me thod Room Air Room Air Room Air 10/13/23 12:05 10/13/23 12:10 10/13/23 12:15 Temperature Pulse Rate 78 75 71 Respiratory Rate 18 20 18 Blood Pressure 110/75 120/77 117/77 Pulse Oximetry 96 96 96 Oxygen Delivery Me thod Room Air Room Air Room Air Documenting provider has reviewed patient's vital signs: yes Assessment and Plan Assessment and plan (1) S/P total knee arthroplasty: Problem comment: Right knee by Dr. Vieira 10/13/2023 Status: Acute (2) Neuropathy: Problem comment: -continue gabapentin per home dosing Status: Acute (3) Obesity: Problem comment: BMI 47.3 (previous BMI 47.7) at risk for sleep apnea. Status: Acute (4) History of breast cancer: Problem comment: On tamoxifen. Increasing risk of thromboembolism Status: Acute Plan 73-year-old female seen following right knee arthroplasty. Generally doing well. Plan routine physical therapy and pain management. Discussed pain management with the patient in some detail. She plans to return home tomorrow. We discussed her chronic medical problems and management of those in at this point she is interested in just resuming her medications at home. Will continue the gabapentin while she is here. I think she is at risk for sleep apnea and will monitor for that while she is here. Total time spent today is 40 minutes, 25 minutes in coordination of care discussing with patient ongoing evaluation management of recovery from knee surgery and other medical problems.
[2023-10-13] MEDS: CEFAZOLIN 2 GM in 0.9 % SODIUM CHLORIDE Mini-bag 100 ML IVPB (16:35)
--- NOTE | 2023-10-13 19:59 | PC.NURSE ---
shift note: pt from recovery @ 1230 via bed. post surg protocol vss initiated. LS clr. IS taught and demonstrated by pt. drsg c/d/i to rt knee. PP+ bilat and cap refill intact. cryo cuff in place. IV patent. Pt medicated x3 for pain control. pt voided clr yellow urine.
[2023-10-13] MEDS: ASPIRIN 81 MG TABLET EC PO (20:29)
[2023-10-13] MEDS: GABAPENTIN 300 MG CAPSULE PO (20:30)
[2023-10-13] MEDS: SENNOSIDES 1 TAB TABLET 2 TAB PO (20:30)
[2023-10-14] MEDS: CEFAZOLIN 2 GM in 0.9 % SODIUM CHLORIDE Mini-bag 100 ML IVPB (01:30)
[2023-10-14] MEDS: ACETAMINOPHEN 500 MG TABLET 1000 MG PO ×2 (01:30→08:31)
[2023-10-14 03:00] VITALS: BP 133/93; PULSE 83; RESP 16; TEMP 37.1; O2SAT 96
[2023-10-14] MEDS: OXYCODONE 5 MG TABLET PO ×3 (06:05→11:09)
--- NOTE | 2023-10-14 06:38 | PC.NURSE ---
Shift note [id number]: Pt alert & oriented x 4 and able to make needs known. Dressing to anterior R knee surgical incision noted to be clean, dry and intact upon inspection. Pt able to transfer and ambulate with assist of 1 using FWW and GB. Pt reported pain to R knee and leg as 7/10 last night and requested PRN Oxycodone and PRN IV Dilaudid for pain control which was effective upon followup.?Cryo cuff also utilized to help reduce pain. CMS to R leg noted to be intact. Bilateral TEDs and Plexi pulses worn. VSS and pt has been afebrile this shift. She is continent of bladder using bathroom for toileting. Last BM 10/12/23 with bowel sounds active x 4.?LS clear to all lobes bilaterally. No N/V this shift. Pt has been denying shortness of breath and CP when asked.
[2023-10-14 06:47] LABS: Basophils Percent Auto 0.1 % (0.0-3.0); Hematocrit 42.8 % (33.0-51.0); Immature Granulocytes Pct Auto 0.4 %; Lymphocytes Percent Auto 10.2 % (20-44); Mean Corpuscular HGB Conc 33 gm/dL (32-36); Mean Corpuscular Hemoglobin 30 pg (26-34); Mean Corpuscular Volume 91 fL (80-100); Monocytes Percent Auto 10.8 % (0.0-11.0); Neutrophils Percent Auto 78.5 % (42.0-72.0); Platelet Count* 255 K/uL (140-440); RDW Coefficient of Variation % 14.4 % (11.5-15.5); Red Blood Count 4.71 m/uL (4.00-5.20); White Blood Count* 14.16 K/uL (4.50-11.00)
[2023-10-14 06:56] LABS: Slide Review Reflex No
[2023-10-14 07:03] LABS: INR 1.01 (0.91-1.10); Prothrombin Time 13.9 Seconds
[2023-10-14 07:05] LABS: Potassium* 4.1 mmol/L (3.6-5.1); Sodium* 135 mmol/L (135-149)
[2023-10-14 07:08] LABS: Creatinine* 0.7 mg/dL (0.5-1.5); Est. Creatinine Clearance* 39.04; Estimated Glomerular Filt Rate 91 ml/min
[2023-10-14 07:09] LABS: Blood Urea Nitrogen* 15 mg/dL (7-30)
[2023-10-14] MEDS: SENNOSIDES 1 TAB TABLET 2 TAB PO (08:31)
[2023-10-14] MEDS: GABAPENTIN 300 MG CAPSULE PO (08:31)
[2023-10-14] MEDS: ASPIRIN 81 MG TABLET EC PO (08:31)
--- NOTE | 2023-10-14 08:41 | P.ORPN_ITS ---
Subjective Subjective Time Seen by Provider: 08:42 Date Seen: 10/14/23 Principal diagnosis: Status post right knee replacement Interval history: Mireya is doing well this morning. She is comfortable at rest. She will be discharging today with her niece. Ortho Exam Narrative Exam Narrative: Alert and oriented x3. Patient is in no acute distress. Converses without labored breathing. Hearing is grossly intact. Ambulates with a walker. Examination of the right knee shows small amount of ecchymosis. Mild edema. Mild effusion. Dressing is intact. No erythema or warmth or sign of infection. Bilateral calves are soft and nontender. CMS intact right lower extremity. Quad strength 5/5. Const Vital Signs, click to edit/add: Vital Signs - 24 hr 10/13/23 11:41 10/13/23 11:46 10/13/23 11:51 Temperature 97.2 F L Pulse Rate 80 84 80 Pulse Rate [Left Pulse Oximeter] Respiratory Rate 20 20 20 Blood Pressure 103/65 104/69 103/70 Blood Pressure [Right Arm] Pulse Oximetry 96 94 96 Oxygen Delivery Method Room Air Room Air Room Air 10/13/23 11:55 10/13/23 12:00 10/13/23 12:05 Temperature Pulse Rate 76 75 78 Pulse Rate [Left Pulse Oximeter] Respiratory Rate 20 20 18 Blood Pressure 102/71 110/72 110/75 Blood Pressure [Right Arm] Pulse Oximetry 96 96 96 Oxygen Delivery Method Room Air Room Air Room Air 10/13/23 12:10 10/13/23 12:15 10/13/23 12:27 Temperature 96.8 F L Pulse Rate 75 71 79 Pulse Rate [Left Pulse Oximeter] Respiratory Rate 20 18 18 Blood Pressure 120/77 117/77 Blood Pressure [Right Arm] 133/84 Pulse Oximetry 96 96 Oxygen Delivery Method Room Air Room Air Room Air 10/13/23 12:27 10/13/23 12:27 10/13/23 12:30 Temperature 96.8 F L 96.8 F L 96.8 F L Pulse Rate Pulse Rate [Left Pulse Oximeter] 79 79 73 Respiratory Rate 18 18 18 Blood Pressure Blood Pressure [Right Arm] 133/84 133/84 132/75 Pulse Oximetry 95 95 96 Oxygen Delivery Method Room Air Room Air Room Air 10/13/23 12:45 10/13/23 13:00 10/13/23 13:15 Temperature 96.8 F L 96.8 F L 97.2 F L Pulse Rate Pulse Rate [Left Pulse Oximeter] 78 77 62 Respiratory Rate 18 18 18 Blood Pressure Blood Pressure [Right Arm] 128/103 H 127/112 H 145/90 H Pulse Oximetry 96 97 97 Oxygen Delivery Method Room Air Room Air Room Air 10/13/23 14:15 10/13/23 15:15 10/13/23 16:15 Temperature 97.2 F L 97.2 F L 97.8 F Pulse Rate Pulse Rate [Left Pulse Oximeter] 64 91 91 Respiratory Rate 18 18 18 Blood Pressure Blood Pressure [Right Arm] 144/98 H 143/90 H 138/88 Pulse Oximetry 97 97 97 Oxygen Delivery Method Room Air Room Air Room Air 10/13/23 20:07 10/13/23 23:00 10/13/23 23:00 Temperature 98.8 F 98.6 F Pulse Rate Pulse Rate [Left Pulse Oximeter] 76 86 Respiratory Rate 18 18 18 Blood Pressure Blood Pressure [Right Arm] 141/80 H 132/76 Pulse Oximetry 97 93 Oxygen Delivery Method Room Air Room Air 10/14/23 03:00 Temperature 98.8 F Pulse Rate Pulse Rate [Left Pulse Oximeter] 83 Respiratory Rate 16 Blood Pressure Blood Pressure [Right Arm] 133/93 H Pulse Oximetry 96 Oxygen Delivery Method Room Air Assessment and Plan Assessment and plan (1) S/P total knee arthroplasty: Problem details: Right knee by Dr. Vieira 10/13/2023 Status: Acute Assessment and Plan: Plan for discharge is today to home if they meet discharge criteria. DVT prophylaxis includes aspirin 81 mg twice daily x1 month, Yasmany stockings x1 month may remove for 1 hr per day, frequent ambulation Remove dressing in 1 week. Observe wound and phone Orthopedics with any questions or concerns Return to clinic in 1 week for a wound check Return to clinic in 6 weeks with surgeon Minimize narcotic use. Wean off and discontinue soon as possible. Activities as tolerated. No strenuous activity. Outpatient physical therapy as scheduled. Ice and elevate the operative extremity. No restriction on ice. She has been working with a certified personal chef who helps her with strengthening and diet. This will prepare her well. He also has a wedge at home for elevation of the right lower extremity. Her home is prepared.
[2023-10-14 09:00] VITALS: BP 120/57; PULSE 87; RESP 18; TEMP 36.6; O2SAT 97
--- NOTE | 2023-10-14 11:38 | PC.NURSE ---
Discharge: Vitals stable and WNL. Pain controlled with PRN medication and Cryocuff. Worked with PT/OT today. SBA with walker and gait belt. Dressing dry and intact, swelling noted over right knee. IV removed with catheter intact. Discharge instructions, medications and follow up reviewed with patient and son. Discharged @ 1115 to home.
== END 2023-10-14 11:15 | disposition home or self-care (01) ==
LOC: OR 07:24 → MEDSURG 07:26
PROVIDERS: PCP Physician Assistant Medical; Visit Provider Orthopaedic Surgery
PROC: (CPT 27447; principal; 2023-10-13 09:15)
DX: M17.11 Unilateral primary osteoarthritis, right knee (principal); G89.18 Other acute postprocedural pain; E66.9 Obesity, unspecified; Z68.42 Body mass index [BMI] 45.0-49.9, adult; G62.9 Polyneuropathy, unspecified
CPT/HCPCS: 27447; 01402; 36415; 64447; 64454; 73560; 76942; 82565; 84132; 84295; 84520; 85025; 85610; 97110; 97116; 97161; 97165; 97530; 99100; A9270; C1776; J0690; J1100; J1170; J2250; J2371; J2405; J2704; J2795; J3010; J7120

== ENCOUNTER 2024-03-13 11:00 | Outpatient (RCR) | payer MEDICARE, BC, SELFPAY ==
--- NOTE | 2023-11-21 13:32 | PT.OPDN ---
PT [facility] Daily Note PT [facility] Out[facility] Daily Note Start: 10/17/23 10:01 Freq: Status: Active Protocol: Document 11/21/23 11:04 CJT (Rec: 11/21/23 12:13 CJT [id number]) E-signed By Wagner Bobby, PT PT OP Daily Progress Note Visit Information Note Type Daily Note Visit Number 10 Insurance Authorized Visits tbd Physician Authorized Visits eval and treat Insurance Information Recert Due Date 01/15/24 Insurance Name Medicare B Medical Diagnosis S/P R TKA Treating Diagnosis Z96.651 - R TKA (10/13/23) Referring Saud Hernandez MD Subjective Subjective Pt had a significant setback in her rehab. Tried to use a public toilet that was very low to the ground and struggled to rise from toilet. When she finally managed to stand, she felt a pop in her R quad with significant pain noted. Pts pain was very high in R quad for about 3 days and has now begun to lessen. Precautions Weight Bearing Status Weight Bear as Tolerated Home Exercise Home Exercise Comments TKA Protocol Objective Other/Pertinent Objective R knee AROM: 5-120 R knee extension: 4+/5 MMT - limited by pain in quad R knee flexion: 5/5 MMT Patient Instructed in Risks/Benefits Yes Therapeutic Exercise Therapeutic Exercise Minutes (minutes) 40 Therapeutic Exercise: To Restore Bike - 8 minutes, S6 Functional Status Squats with hands at rail 3 x 10 Heel raises 2 x 20 Gastroc stretch on slant board 2 x 60 [id number] 3 x 10 6 step-up 2 x 8 ea 6 lateral step-down 2 x 8 ea Manual Therapy Techniques Manual Therapy Minutes (minutes) 15 Manual Therapy Techniques Grade II-III AP mobilizations to R knee in supine to facilitate extension ROM. Decongestive massage to entire R LE to reduce swelling. STM to R quad, VMO, ITB, gastroc and posterior knee joint capsule to reduce tissue tension and improve extensibility. Treatment Minutes Timed Code Treatment Minutes 55 Total Treatment Time 55 Billing Units Neuromuscular Reeducation Units 1 Therapeutic Exercise Units 3 Assessment/Impression Assessment/Impression Mireya has progressed well during her time in therapy thus far despite a minor set back last week. Pt was attempting to stand from a low toilet last and felt a pop in her R quad. Pt noted her pain felt like severe muscle soreness and has since reduced considerably. Upon inspection today her quad appears normal in appearance and is absent of bruising. I think she likely strained her R quad and likely has some adhesive disruption between deeper tissues in the quad. Pts pain improved considerably with exercise today. My top concern for Mireya at this time is lack of R knee extension which continues to lack 5 degrees. Today we reviewed a prone knee extension hang stretch that she will begin completing daily for 10-15 minute to help with her extension ROM. Recommend continued PT services to address deficits and return pt to highest level of function. Plan of Care Physical Therapy Goals STG - To be completed in 2-3 weeks: 1. Pt will report consistent use of ice as well as elevation of surgical limb while resting to reduce inflammation and swelling. MET 2. Pt will demonstrate 90 degrees of knee flexion on surgical limb to reduce risk of contracture development and progress through rehabilitation as expected. MET 3. Pt to show appropriate use of all AD's with minimal gait deviations and no LOB with all ambulation to reduce risk of falls and restore normal gait mechanics. MET LTG - To be completed in 8-12 weeks: 1. Pt to be I with HEP so that they may I manage progression of symptoms. 2. Pt will demonstrate 120 degrees knee flexion on surgical limb so that they may descend steps without restrictions in ROM. 3. Pt will perform 10+ squats with good control over medial/ lateral deviation of knees to show improved functional strength to assist with transfers. 4. Pt will demonstrate 5/5 MMT knee flexion/extension of surgical limb to provide greater support to knee joint and allow for ease of ambulation. Daily Plan of Care Continue per POC Daily Plan of Care Comments Update and progress HEP as able. Recertification Information Provider Signature Shows Agreement With POC & Medical Necessity
== END 2024-06-28 13:58 | disposition home or self-care (01) ==
PROVIDERS: PCP Physician Assistant Medical; Visit Provider Orthopaedic Surgery
DX: M17.11 Unilateral primary osteoarthritis, right knee (principal); Z51.89 Encounter for other specified aftercare
CPT/HCPCS: 97016; 97110; 97112; 97140; 97161; 97530

== ENCOUNTER 2024-05-14 14:37 | Outpatient (RCR) | payer MEDICARE, BC, SELFPAY | END 2024-11-10 23:59 | disposition home or self-care (01) | LOC: CCIC 14:37 | PROVIDERS: PCP Physician Assistant Medical; Visit Provider Physician Assistant | DX: C50.912 Malignant neoplasm of unspecified site of left female breast (principal); Z17.0 Estrogen receptor positive status [ER+]; Z90.13 Acquired absence of bilateral breasts and nipples; Z79.810 Long term (current) use of selective estrogen receptor modulators (SERMs); G62.9 Polyneuropathy, unspecified | CPT/HCPCS: 99214; G0463 ==

== ENCOUNTER 2024-06-19 11:35 | Outpatient (CLI) | payer MEDICARE, BC, SELFPAY | END 2024-06-19 11:36 | disposition home or self-care (01) | PROVIDERS: PCP Physician Assistant Medical; Visit Provider Physician Assistant Medical | DX: Z00.00 Encounter for general adult medical examination without abnormal findings (principal); R03.0 Elevated blood-pressure reading, without diagnosis of hypertension; R73.03 Prediabetes; E66.9 Obesity, unspecified; Z13.6 Encounter for screening for cardiovascular disorders | CPT/HCPCS: 80053; 80061; 84443 ==

== ENCOUNTER 2024-07-19 13:23 | Outpatient (CLI) | payer MEDICARE, BC, SELFPAY ==
--- NOTE | 2024-07-19 14:00 | CRLHL7_ITS ---
For Patients: As a result of the Century Cures Act, medical imaging exams and procedure reports are released immediately into your electronic medical record. You may view this report before your referring provider. If you have questions, please contact your health care provider. DXA BONE MINERAL DENSITY STUDY Reason for exam: Asymptomatic menopausal state. Current height (in): 62. Weight (lb): 265. Menopause age: 53. Ethnicity: White. 1. Have you had a previous hip or vertebral fracture? No. 2. Have you had any fractures during your adult life which did not result from significant trauma (e.g., auto accident)? No. 3. Did either of your parents have a hip fracture? Yes. 4. Do you smoke? No. 5. Have you ever taken Glucocorticoids? No. 6. Do you have rheumatoid arthritis? No. 7. Do you have secondary osteoporosis? No. 8. Do you drink 3 or more alcoholic drinks per day? No. 9. Are you being treated for osteoporosis? No. 10. Have you ever taken any of the following medications: Actonel, Evista, Fosamax, Miacalcin, Reclast, Boniva, Forteo, HRT (i.e. estrogen/hormone therapy), Protelos, Prolia, Vitamin D, Calcium, other ??? please specify. ANSWER: Yes, vitamin D, calcium. 11. Do you have any of the following medical conditions: Anorexia or bulimia, asthma or emphysema, end stage renal disease, hyperparathyroidism, any seizure disorders, cancer, inflammatory bowel diseases, hysterectomy, other ??? please specify. ANSWER: Yes, cancer, hysterectomy. 12. What was your maximum height (inches)? 64. 13. Do you perform weight bearing exercise regularly? Yes. 14. Do you regularly consume dairy products? Yes. 15. Do you drink caffeinated beverages? No. 16. At what age did your period start? 13. 17. Are you premenopausal? No. 18. How many full term pregnancies have you had? 2. 19. Have you ever missed your period for more than 6 months in a row (not including or menopause)? No. TECHNIQUE: Bone mineral density study was performed using the [employer]. FINDINGS: The results of the study expressed as bone mineral density (BMD) are as follows: Lumbar spine L1 to L4(L2): BMD: 1.041 g/cm2. T-score: -0.1. Z-score: 2.3. Neck Left: BMD: 0.714 g/cm2. T-score: -1.2. Z-score: 0.9. Right: BMD: 0.713 g/cm2. T-score: -1.2. Z-score: 0.9. Total Left: BMD: 0.843 g/cm2. T-score: -0.8. Z-score: 1.0. Right: BMD: 0.813 g/cm2. T-score: -1.1. Z-score: 0.7. IMPRESSION: Osteopenia. COMPARISON: Compared with scan of 12/17/2021, the bone mineral density has decreased by 7.2 percent at the spine and decreased by 6.5 percent at the hip. Compared with scan of 07/09/2019, the bone mineral density has decreased by 0.6 percent at the spine and increased by 4.2 percent at the hip. FRAX 10-year Fracture Risk Major Osteoporotic Fracture: 13 percent Hip Fracture: 5.4 percent Reported Risk Factors: [place] () Neck BMD=0.713, BMI=48.5, parental fracture Mehran Deleon M.D. Diagnostic Radiologist [email or web address] ERIN/alice / bM/Dictated by: Mehran Deleon MD @ 07/19/2024 3:46:00 PM (Electronically Signed)
== END 2024-07-19 13:24 | disposition home or self-care (01) ==
LOC: RAD 13:24
PROVIDERS: PCP Physician Assistant Medical; Visit Provider Physician Assistant Medical
DX: Z78.0 Asymptomatic menopausal state (principal); M85.89 Other specified disorders of bone density and structure, multiple sites
CPT/HCPCS: 77080

== ENCOUNTER 2024-12-14 12:53 | Outpatient (RCR) | payer MEDICARE, BC, SELFPAY ==
--- NOTE | 2024-12-18 07:41 | PT.OPE ---
PT [place] [facility] Eval PT [facility] Outpatient Eval Start: 12/14/24 14:21 Freq: Status: Active Protocol: Document 12/14/24 14:21 VALENTINA (Rec: 12/14/24 14:23 VALENTINA [email or web address]) E-signed By Chet Talley DPT, MS Physical Therapy Outpatient Evaluation Insurance Information Recert Due Date 03/14/25 Insurance Name Medicare B Medical Diagnosis Benign paroxysmal vertigo, unspecified ear Treating Diagnosis R BPPV, imbalance, sensory disorganization Subjective Subjective Pt is a 74 y.o. female who presents to PT with c/o of positional dizziness of insidious origin getting out of ~2 months ago. Describes sxs as room spinning dizziness with disorientation for 5-10 seconds following. Dizziness most frequently occurs with supine<>sit transfers in and out of bed, and with looking up. Generally feels off with mental and physical fatigue as the day progresses. Lives alone in an house adapted for care home. Notes chronic hx of LS pain with a PSH of B TKA. Pt hopes to resolve dizziness prior to a trip to [facility] in late December. Denies other changes in her hearing or vision. Denies previous hx of vertigo. PMH includes osteoporosis and depression. AGGR factors: rolling to R, lying on R side, looking up, fwd bending, supine<>sit and sit<>stand. ALLEV factors: rest. 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 Assessment Assessment/Impression Pt displays signs and symptoms consistent with R posterior canal BPPV with + R javier hallpike testing. Pt also displays sensory disorganization with overreliance on vision for balance. Pt presented as resolved following CRM x 2 for R posterior canal with negative testing following. Sensory disorganization with balance testing consistent with peripheral vestibular dysfunction All other neurological testing normal. She a falls risk based on his score on the 4-item Dynamic Gait Index testing. She will benefit from continued skilled PT intervention to address these limitations. Primary Functional Limitations Rolling to R, lying on R side, looking up, fwd bending, supine<>sit Plan of Care Rehabilitation Potential Excellent Physical Therapy Goals Therapy goals to be completed in 10 weeks: 1. Patient will display resolution of R posterior canalithiasis BPPV symptoms for >5 consecutive days to improve safety with household cleaning activities. 2. Pt will displays improved balance on compliant surfaces with e/c to improve safety walking in the dark. 3. Pt will report >75% improvement on DHI questionnaire to improve tolerance to daily activities. Coordination/Communication With Referral Source Treatment Plan/Direct Interventions Canalith Repositioning, Neuromuscular Re-ed,Self-Care/ Home Management,Therapeutic Exercises Frequency/Duration 1x per week for as needed for at least 6-10 visits. Patient Will Be Discharged From Therapy Completion of LTG(s),Skills Plateau,Independent w/HEP, Independently Progressing Evaluation Billing Untimed Code Treatment Minutes 23 Complexity Moderate Certification Information Initial Certification Date 12/14/24 Ending Certification Date 03/14/25 Provider Signature Required Yes Provider Signature Shows Agreement With POC & Medical Necessity Physician NPI Number Write NPI# Here Physician Comment/Change : Physician Signature & Date Requested Please Sign/Date Here
== END 2025-04-13 23:59 | disposition home or self-care (01) ==
PROVIDERS: PCP Physician Assistant Medical; Visit Provider Physician Assistant Medical
DX: H81.11 Benign paroxysmal vertigo, right ear (principal); Z51.89 Encounter for other specified aftercare
CPT/HCPCS: 97162